=== PATIENT | male | born 1970 | race Caucasian/White ===

== ENCOUNTER 2018-09-14 11:24 | Outpatient (CLI) | payer MEDICARE, MEDICAID ==
[~2018-09-14 11:24] MED LIST: ALBU2.5V13 NEB; ARMO250T2 PO; ATOR10TA PO; BUDE10.2 INH; BUME1TAB4 PO; CYAN50008 PO; FOLI1TAB16 PO; LACT10SO PO; LEVA15HF4 INH; MULT-227 PO; PANT-47 PO; RIFA550T PO; SPIR100T5 PO; SUCR1ORA PO; SYN0.1T PO; TRAM50TA2 PO; TRAN650T2 PO; ZIN220C PO
== END 2018-09-14 23:59 | disposition home or self-care (01) ==
LOC: DCI 11:24
DX: Z00.00 Encounter for general adult medical examination without abnormal findings (principal)

== ENCOUNTER 2018-10-14 14:39 | Outpatient (CLI) | payer MEDICARE, MEDICAID | END 2018-10-14 23:59 | disposition home or self-care (01) | LOC: DCI 14:39 | PROVIDERS: ATTEND Internal Medicine Critical Care Medicine | DX: D64.9 Anemia, unspecified (principal); Z53.9 Procedure and treatment not carried out, unspecified reason ==

== ENCOUNTER 2018-12-07 12:25 | Outpatient (CLI) | payer MEDICARE, MEDICAID | END 2018-12-07 23:59 | disposition home or self-care (01) | LOC: DCI 12:25 | DX: D64.9 Anemia, unspecified (principal); Z53.21 Procedure and treatment not carried out due to patient leaving prior to being seen by health care provider ==